=== PATIENT | female | born 1950 | race Caucasian/White ===

== ENCOUNTER 2022-08-14 14:24 | Emergency (ER) | payer MEDICARE, OTHER ==
[2022-08-14 16:08] VITALS: PULSE 80
[2022-08-14 17:50] VITALS: BP 138/90
== END 2022-08-14 17:56 | disposition home or self-care (01) ==
LOC: MW.ED 14:24
DX: M79.601 Pain in right arm (principal); M25.511 Pain in right shoulder; I10 Essential (primary) hypertension; Z88.0 Allergy status to penicillin; Z79.899 Other long term (current) drug therapy; X50.1XXA Overexertion from prolonged static or awkward postures, initial encounter
CPT/HCPCS: 73030-26-RT; 73030-RT; 73060-26-RT; 73060-RT; 99283